=== PATIENT | male | born 1980 | race Caucasian/White ===

== ENCOUNTER 2020-05-20 02:32 | Emergency (ER) | payer BC, SELFPAY ==
[2020-05-20 02:39] VITALS: BP 184/108; PULSE 93; RESP 17; TEMP 36.8; O2SAT 97; BMI 33.0
--- NOTE | 2020-05-20 02:46 | W.ED.ALLEREA ---
HPI - Allergic Reaction General: Chief complaint: Allergic Reaction Stated complaint: cp/poss allergic reaction Time Seen by Provider: 05/20/20 02:36 Source: patient Mode of arrival: ambulatory Limitations: no limitations History of Present Illness: HPI narrative: 39-year-old male he states he ate barbecue roughly 2 hours ago and used a face wash. Patient states he started having numbness and a rash to his face. Patient states that he also has been having some slight shortness of breath and pain with swallowing. He denies any worsening improving factors. He states he feels quite anxious. Patient is well-appearing here with no distress. MD complaint: allergic reaction Onset (ago): hour(s) Exposure: food Associated symptoms: Deny abdominal pain, nausea or vomiting Review of Systems Const: Denies: fever(s), chills, body aches or change in appetite Eyes: Denies: blurry vision or eye discomfort ENMT: Denies: throat pain or dental pain Card: Denies: chest pain Resp: Reports: dyspnea GI: Denies: abdominal pain, nausea, vomiting or diarrhea : Denies: dysuria Musc: Denies: neck pain or back pain Skin/Breast: Reports: rash Neuro: Denies: headache(s) Psych: Denies: depression Amrit/Lymph: Denies: easy bruising All/Imm: Denies: urticaria Physical Exam Const: COMMON NORMALS: no acute distress, patient oriented x3 and healthy appearing HENMT: COMMON NORMALS: normocephalic and atraumatic HEAD & SCALP: normocephalic and atraumatic Eye: COMMON NORMALS: Equal, round and reactive pupils present and EOMs intact bilaterally PUPIL: Yes Equal, round and reactive pupils present Neck/C-Spine: COMMON NORMALS: full ROM and supple Chest: COMMONS NORMALS: normal inspection of the chest and normal palpation of entire chest wall Resp: COMMON NORMALS: normal respiratory effort, No retractions, No use of accessory muscles and clear to auscultation bilaterally AUSCULTATION: clear to auscultation bilaterally Cardio: COMMON NORMALS: regular rate, regular rhythm and No murmurs present (Cardio) RATE: regular rate RHYTHM: regular rhythm GI: COMMON NORMALS: Normal to inspection, nondistended, normoactive bowel sounds present, Soft to palpation, non-tender and no masses PALPATION: Yes Soft to palpation Extremity: COMMON NORMALS: normal to inspection and full ROM Neuro: COMMON NORMALS: patient oriented x3, moves all extremities and no focal motor deficits Psych: COMMON NORMALS: mental status grossly normal, Normal thought process present and cooperative THOUGHT PROCESS: Normal thought process present Skin: COMMON NORMALS: no wounds NARRATIVE SKIN EXAM: rash to face Course Vital Signs: Vital signs: Vital Signs Temperature 98.3 F 05/20/20 02:39 Pulse Rate 90 05/20/20 02:49 Respiratory Rate 16 05/20/20 02:49 Blood Pressure 184/104 05/20/20 02:49 Pulse Oximetry 97 05/20/20 02:49 MDM - Allergic Reaction MDM Narrative: Medical decision making narrative: Elmer presents with an allergic reaction likely to his face wash. He feels improved here and is well-appearing. Patient is stable for discharge. Patient requested refill for his losartan will write him a new prescription. He is to follow-up with primary care doctor and return if worsening. 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
[2020-05-20 02:49] VITALS: BP 184/104; PULSE 90; RESP 16; O2SAT 97
[2020-05-20] MEDS: diphenhydrAMINE 50 mg/mL SDV 1mL IVP (02:55)
[2020-05-20] MEDS: lidocaine 2% viscous 15 ML, aluminum-mag hydrox-simethicon 30 ML, sucralfate oral liq 1 GM PO (02:56)
[2020-05-20 03:28] VITALS: BP 156/92; PULSE 87; RESP 18; O2SAT 98
[2020-05-20 03:41] VITALS: BP 156/92; PULSE 84; RESP 18; O2SAT 96
== END 2020-05-20 03:43 | disposition home or self-care (01) ==
PROVIDERS: Emergency Provider Emergency Medicine
DX: T78.40XA Allergy, unspecified, initial encounter (principal)
CPT/HCPCS: 12345; 96374; 96375; 99283; J1200; J2930